=== PATIENT | male | born 1970 ===

== ENCOUNTER 2018-06-07 09:47 | Outpatient (CLI) | payer OTHER | END 2018-06-07 10:10 | disposition home or self-care (01) | LOC: OFIC 805 09:47 | DX: R22.1 Localized swelling, mass and lump, neck (principal); M54.2 Cervicalgia ==

== ENCOUNTER 2018-06-12 10:23 | Outpatient (CLI) | payer OTHER ==
[~2018-06-12] VITALS: Ht 152.4 cm; Wt 111.1 kg
== END 2018-06-12 10:40 | disposition home or self-care (01) ==
LOC: OFIC 805 10:23
DX: M54.2 Cervicalgia (principal); R22.1 Localized swelling, mass and lump, neck